=== PATIENT | female | born 1975 | race African-American/Black ===

== ENCOUNTER 2017-03-19 13:46 | Emergency (ER) | payer OTHER ==
[~2017-03-19] VITALS: Ht 160 cm; Wt 50.5 kg
[2017-03-19] MEDS ORDERED: ZYRT10CA PO (14:06)
[2017-03-19] MEDS ORDERED: CYCL10TA PO (17:52)
[2017-03-19 17:55] VITALS: BP 138/91
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
== END 2017-03-19 18:16 | disposition home or self-care (01) ==
LOC: M ED 13:46
DX: S39.002A Unspecified injury of muscle, fascia and tendon of lower back, initial encounter (principal); S16.1XXA Strain of muscle, fascia and tendon at neck level, initial encounter; V89.9XXA Person injured in unspecified vehicle accident, initial encounter; Y92.410 Unspecified street and highway as the place of occurrence of the external cause; Y93.89 Activity, other specified; Y99.8 Other external cause status; Z88.0 Allergy status to penicillin; Z88.2 Allergy status to sulfonamides